=== PATIENT | female | born 1995 | race Caucasian/White ===

== ENCOUNTER 2020-03-08 16:26 | Emergency (ER) | payer OTHER ==
[~2020-03-08] VITALS: Ht 154.9 cm; Wt 93.9 kg
[2020-03-08 16:41] LABS: URINE BILIRUBIN NEGATIVE (Negative); URINE BLOOD 3+ (Negative); URINE CLARITY CLEAR; URINE COLOR YELLOW; URINE GLUCOSE-RANDOM NEGATIVE (Negative); URINE KETONES NEGATIVE (Negative); URINE LEUKOCYTES-REFLEX NEGATIVE (Negative); URINE NITRITE-REFLEX NEGATIVE (Negative); URINE PROTEIN NEGATIVE (Negative); URINE UROBILINOGEN 0.2 E.U./dl (0.2-1.0)
[2020-03-08 16:47] LABS: CASTS None Seen /LPF (None Seen); MUCUS 0-3 Light strn/LPF (None Seen); SQUAMOUS >10 Many /LPF (0-3)
[2020-03-08 16:48] LABS: URINE RBC >20 Many /HPF (0-2); URINE WBC-REFLEX 0-5 Rare /HPF (0-5)
[2020-03-08 16:49] LABS: BACTERIA-REFLEX None Seen /HPF (None Seen); CRYSTALS None Seen /LPF (None Seen)
[2020-03-08 17:19] LABS: HEMATOCRIT 39.9 % (37.0-47.0); HEMOGLOBIN 13.5 gm/dL (12.0-15.0); MCHC 33.8 g/dL (28.0-37.0); MCV 82.8 fL (80.0-100.0); MPV 8.2 fl. (7.2-11.1); NUCLEATED RBCS 0 /100WBC; PLATELET COUNT* 329 thou/uL (150-400); RBC 4.81 mil/uL (4.20-5.00); RDW-CV 13.5 % (10.5-14.5); WBC 16.5 thou/uL (4.0-11.0)
[2020-03-08 17:27] LABS: CALCIUM 7.9 mg/dL (8.5-10.1); CREATININE 0.8 mg/dL (0.6-1.3); POTASSIUM 3.4 mmol/L (3.5-5.1)
[2020-03-08 17:31] LABS: ALBUMIN 3.8 g/dL (3.4-5.0); TOTAL BILIRUBIN 0.3 mg/dL (<0.1-1.0); TOTAL PROTEIN 7.3 g/dL (6.4-8.2)
[2020-03-08 18:03] LABS: ABSOLUTE EOSINOPHILS 0.2 thou/uL (0.0-0.7); ABSOLUTE MONOCYTES 1.2 thou/uL (0.0-1.2); ABSOLUTE NEUTROPHILS 14.2 thou/uL (1.6-8.1)
[2020-03-08 18:04] LABS: PLATELET ESTIMATE ADEQUATE
[2020-03-08] MEDS ORDERED: TYLENOL WITH CO1 TA1 PO (18:49)
[2020-03-08] MEDS ORDERED: NAPROSYN500 MG PO (18:49)
[2020-03-08 19:25] VITALS: BP 104/64
== END 2020-03-08 19:28 | disposition home or self-care (01) ==
LOC: M.ERS 16:26
PROVIDERS: Nurse Practitioner Family
DX: R10.31 Right lower quadrant pain (principal); N89.8 Other specified noninflammatory disorders of vagina

== ENCOUNTER 2021-09-29 15:10 | Emergency (ER) | payer OTHER ==
[~2021-09-29] VITALS: Ht 154.9 cm; Wt 103.4 kg
[~2021-09-29 15:10] MED LIST: NAPROSYN500 MG PO; TYLENOL WITH CO1 TA1 PO
[2021-09-29 19:23] LABS: URINE BILIRUBIN NEGATIVE (Negative); URINE BLOOD 3+ (Negative); URINE CLARITY CLOUDY; URINE COLOR YELLOW; URINE GLUCOSE-RANDOM NEGATIVE (Negative); URINE KETONES 2+ (Negative); URINE LEUKOCYTES-REFLEX NEGATIVE (Negative); URINE NITRITE-REFLEX NEGATIVE (Negative); URINE PROTEIN TRACE (Negative); URINE SPECIFIC GRAVITY >= 1.030 (1.005-1.030); URINE UROBILINOGEN 0.2 E.U./dl (0.2-1.0)
[2021-09-29 19:32] LABS: SQUAMOUS >10 Many /LPF (0-3)
[2021-09-29 19:33] LABS: CASTS None Seen /LPF (None Seen); CRYSTALS None Seen /LPF (None Seen); MUCUS 4-6 Moderate strn/LPF (None Seen); URINE RBC 3-10 Few /HPF (0-2); URINE WBC-REFLEX 0-5 Rare /HPF (0-5)
[2021-09-29 19:55] LABS: ABSOLUTE LYMPHOCYTES 0.4 thou/uL (0.8-5.3); ABSOLUTE MONOCYTES 0.5 thou/uL (0.0-1.2); ABSOLUTE NEUTROPHILS 12.7 thou/uL (1.6-8.1); BASOPHILS 0.3 %; HEMOGLOBIN 14.6 gm/dL (12.0-15.0); LYMPHOCYTES 3.2 %; MCH 27.8 pg (26.0-34.0); MCHC 33.2 g/dL (28.0-37.0); MCV 83.6 fL (80.0-100.0); MONOCYTES 3.3 %; MPV 8.2 fl. (7.2-11.1); NUCLEATED RBCS 0 /100WBC; PLATELET COUNT* 339 thou/uL (150-400); POLYS 93.2 %; RBC 5.26 mil/uL (4.20-5.00); RDW-CV 13.3 % (10.5-14.5); WBC 13.6 thou/uL (4.0-11.0)
[2021-09-29 20:14] LABS: CALCIUM 8.6 mg/dL (8.5-10.1); CREATININE 0.8 mg/dL (0.6-1.3); POTASSIUM 3.6 mmol/L (3.5-5.1)
[2021-09-29 20:19] LABS: ALBUMIN 4.2 g/dL (3.4-5.0); TOTAL BILIRUBIN 0.6 mg/dL (<0.1-1.0)
[2021-09-29] MEDS ORDERED: BENTYL 10 MG CA10 MG PO (21:31)
[2021-09-29] MEDS ORDERED: ZOFRAN ODT4 MG PO (21:31)
[2021-09-29 21:44] VITALS: BP 118/67
== END 2021-09-29 21:44 | disposition home or self-care (01) ==
LOC: M.ERS 15:10
PROVIDERS: Physician Assistant
DX: R10.84 Generalized abdominal pain (principal); D72.829 Elevated white blood cell count, unspecified; E66.01 Morbid (severe) obesity due to excess calories; Z68.41 Body mass index [BMI] 40.0-44.9, adult; Z87.42 Personal history of other diseases of the female genital tract

== ENCOUNTER → 2021-10-23 | Outpatient (CLI) | payer OTHER ==
[~2021-10-23] MED LIST changes: +BENTYL 10 MG CA10 MG PO; +ROXICODONE5 MG PO; +ZOFRAN ODT4 MG PO
== END ==
LOC: M.LAB 13:31
PROVIDERS: ATTEND Surgery
DX: Z01.812 Encounter for preprocedural laboratory examination (principal); Z20.822 Contact with and (suspected) exposure to COVID-19

== ENCOUNTER → 2021-10-24 | Day surgery (SDC) | payer OTHER ==
--- NOTE | ~2021-10-24 | OP ---
[address] [address] OPERATIVE REPORT Name: DAYANNA PADRON Room: [facility].#: [id number] Admission: 10/24/21 Attend Phys: Consuelo Levin DO Discharge: Date of : 89 Report #: [id number] THIS REPORT FOR: cc: Rachel uH Samantha RNP [facility],Medical Records Staff ~ For Operative report details, please see the Post-Operative note. By: 0641Medical Records Staff COSMO /DOMINIC
--- NOTE | 2021-10-26 17:07 | PATH ---
[facility] [address] [place] [address] PATHOLOGY RPT PROCEDURE Name: DAYANNA PADRON Room: [facility]..#: [id number] Admission: 10/24/21 Date of : 89 Discharge: Report #: [id number] Path Case #: [id number] [facility] Accession Number: [id number] . 01 Material submitted: . gallbladder - GALLBLADDER WITH CONTENTS . 01 Clinical history: . LAPAROSCOPIC CHOLECYSTECTOMY CALCULUS OF GALLBLADDER W/O CHOLECYSTITIS . 02 Diagnosis: Gallbladder with contents: - Chronic cholecystitis and cholelithiasis. (VENUS:meena; 10/26/2021) MBR 10/26/2021 [facility]2 Local . 02 Electronically signed: . Jake Chaudhari MD, Pathologist NPI- [id number] . 01 Gross description: . Fixative: Formalin Labeled: Gallbladder with contents Specimen received: Previously punctured gallbladder Dimensions: 7.4 x 2.1 x 1.8 cm Serosa: [employer] Lymph node: Not identified Mucosa: Velvety, bile-stained Average wall thickness: 0.1 cm Calculi: Present displaying a dark yellow and multifaceted appearance Abnormalities: None identified . Pharm Spec body, fundus, and the cystic duct margin in cassette A1. (CAA; 10/25/2021) QA/[facility] 10/25/2021 0848 Local . 02 Pathologist provided ICD-10: K80.10 . 02 CPT . 332354 Specimen Comment: A courtesy copy of this report has been sent to [phone] Specimen Comment: [phone] Specimen Comment: Report sent to / DR PRITCHARD Performed at: [address] [id number] PATHOLOGY RPT PROCEDURE Name: DAYANNA PADRON Room: [facility]#: [id number] Admission: 10/24/21 Date of : 89 Discharge: Report #: [id number] Path Case #: [id number] [address] [id number] MD Simeon Solis MD Phone: [phone] Performed at: [address] [address] [address] Allison, [place] [id number] MD Jake Chaudhari MD Phone: [phone]
== END | disposition home or self-care (01) ==
LOC: M.SUR
PROVIDERS: ATTEND Surgery
DX: K80.10 Calculus of gallbladder with chronic cholecystitis without obstruction (principal); R10.11 Right upper quadrant pain; Z98.890 Other specified postprocedural states; Z79.899 Other long term (current) drug therapy